=== PATIENT | female | born 1945 | race American Indian/Alaskan Native ===

== ENCOUNTER 2018-09-09 08:13 | Outpatient (CLI) | payer MEDICARE ==
[2018-09-09 09:15] LABS: Blood Urea Nitrogen 13 mg/dL (7-17)
--- NOTE | 2018-09-09 09:56 | Cat Scan Report ---
CT CHEST WITH CONTRAST INDICATION: Interstitial pulmonary disease, unspecified (J84.9 ) CONTRAST: 100 cc Omnipaque 350 IV COMPARISON: None available. All CT scans at this location are performed using CT dose reduction for ALARA by means of automated e xposure control. FINDINGS: No significant axillary or chest wall abnormalities are seen. Small hiatal hernia is noted. No mediastinal or hilar masses are seen. Visualized portions of the upper abdomen show a small right renal cyst. No areas of consolidation are seen. No pulmonary nodules or masses are noted. I do not see significan t evidence of interstitial lung disease. IMPRESSION: 1. No evidence of interstitial lung disease 2. No acute abnormalities are seen Signer Name: Jean Carlos Hernández MD Signed: 09/09/2018 9:51 AM Workstation Name: [id number]
[2018-09-14 20:01] LABS: Myeloperoxidase Antibody <1.0 AI (<1.0)
== END 2018-09-09 08:14 | disposition home or self-care (01) ==
LOC: CT 08:13
PROVIDERS: ATTEND Internal Medicine
DX: J84.9 Interstitial pulmonary disease, unspecified (principal); K44.9 Diaphragmatic hernia without obstruction or gangrene; N28.1 Cyst of kidney, acquired
CPT/HCPCS: 36415; 71260; 82164; 82565; 84520; 85652; 86021; 86038; 86618; Q9967